=== PATIENT | female | born 1965 | race Caucasian/White ===

== ENCOUNTER → 2016-06-08 | Outpatient (CLI) | payer OTHER ==
[~2016-06-08] VITALS: Ht 162.6 cm; Wt 76.2 kg
[~2016-06-08] MED LIST: CALCIO DEL MAR500 MG PO; CELEXA10 MG PO; DILAUDID2 MG PO; DILAUDID4 MG PO; FLUCONAZOLE100 MG PO; KEPPRA500 MG PO; KEPPRA750 MG PO; LAMICTAL100 MG PO; LEVOTHYROXINE100 MCG PO; NEXIUM40 MG PO; PERCOCET 5/31 TABLET PO; PROTONIX40 MG PO; SYNTHROID100 MCG PO; ULTRAM50 MG PO; VITAMIN D400 UNIT PO; ZANTAC75 MG PO; ZOFRAN ODT4 MG PO; [UNRECOGNIZED DRUG - REMARK] PO
[2016-06-08 09:12] VITALS: BP 116/61
== END | disposition home or self-care (01) ==
LOC: OPR 06-07 09:00
DX: C71.6 Malignant neoplasm of cerebellum (principal); Z82.3 Family history of stroke; F17.200 Nicotine dependence, unspecified, uncomplicated; F41.9 Anxiety disorder, unspecified; Z88.8 Allergy status to other drugs, medicaments and biological substances
CPT/HCPCS: 70553; J2405

== ENCOUNTER → 2017-05-31 | Outpatient (CLI) | payer OTHER ==
[~2017-05-31] VITALS: Ht 165.1 cm; Wt 76.7 kg
[2017-05-31 07:51] VITALS: BP 106/53
== END | disposition home or self-care (01) ==
LOC: OPR 06:53
DX: C71.9 Malignant neoplasm of brain, unspecified (principal); R51 Headache; F40.240 Claustrophobia
CPT/HCPCS: 70551; J2250

== ENCOUNTER 2017-09-27 22:27 | Emergency (ER) | payer OTHER ==
[~2017-09-27] VITALS: Ht 165.1 cm; Wt 74.5 kg
[2017-09-27 23:33] LABS: HEMATOCRIT 38.8 % (36.0-46.0); HEMOGLOBIN 12.9 G/DL (11.9-15.5); MCH 27.9 PG (29.0-34.0); MCHC 33.2 G/DL (30.0-36.0); MCV 83.8 FL (83-99); PLATELET COUNT 305 K/uL (156-360); RBC DIS.WIDTH-CV 13.4 % (11.8-14.6); RBC DIS.WIDTH-SD 40.8 % (39-53); RED BLOOD COUNT 4.63 M/uL (3.80-5.20); WHITE BLOOD COUNT 13.5 K/uL (4.1-10.2)
[2017-09-27 23:40] LABS: ALBUMIN 4.3 g/dL (3.2-4.8); CHLORIDE 104 mEq/L (99-109); POTASSIUM 3.4 mEq/L (3.7-5.4); SODIUM 137 mEq/L (136-147)
[2017-09-27 23:42] LABS: GLUCOSE 105 mg/dL (70-99); TOTAL PROTEIN 7.4 g/dL (6.4-8.3)
[2017-09-27 23:44] LABS: TOTAL BILIRUBIN 0.6 mg/dL (0.0-1.0)
[2017-09-27 23:46] LABS: ALKALINE PHOSPHATASE 187 IU/L (3-129); CREATININE 0.8 mg/dL (0.6-1.3); GFR ESTIMATE (CALCULATED) > 59 mL/min/
[2017-09-27 23:47] LABS: AST (GOT) 18 IU/L (2-34); UREA NITROGEN (BUN) 14 mg/dL (9-23)
[2017-09-27 23:49] LABS: ALT (GPT) 30 IU/L (3-49); LIPASE 5 U/L (1.0-51.0)
[2017-09-27 23:55] LABS: QUANTITATIVE HCG < 4.0 MIU/ML
[2017-09-28] MEDS ORDERED: FLAGYL500 MG PO (02:19)
[2017-09-28] MEDS ORDERED: CIPRO500 MG PO (02:19)
[2017-09-28 02:58] VITALS: BP 139/81
== END 2017-09-28 02:57 | disposition home or self-care (01) ==
LOC: EME → EDBD 22:27 → EME 09-28 02:57
DX: K52.9 Noninfective gastroenteritis and colitis, unspecified (principal); K62.5 Hemorrhage of anus and rectum; R47.1 Dysarthria and anarthria; R56.9 Unspecified convulsions; F41.9 Anxiety disorder, unspecified; F32.9 Major depressive disorder, single episode, unspecified; F17.200 Nicotine dependence, unspecified, uncomplicated; Z86.011 Personal history of benign neoplasm of the brain; Z87.442 Personal history of urinary calculi; Z90.710 Acquired absence of both cervix and uterus; Z88.0 Allergy status to penicillin; Z88.1 Allergy status to other antibiotic agents; Z88.5 Allergy status to narcotic agent; Z88.8 Allergy status to other drugs, medicaments and biological substances
CPT/HCPCS: 74177; 76705; 80053; 81003; 83690; 84702; 85027; 99281; 99285; J2270; J2405